=== PATIENT | male | born 1985 | race Caucasian/White ===

== ENCOUNTER 2017-03-01 21:28 | Emergency (ER) | payer SELFPAY ==
[2017-03-01 21:53] VITALS: BP 143/85
[2017-03-01] MEDS ORDERED: Ketorolac 60 MG/2 ML SDV IM ONE ×2 (22:01→22:02)
--- NOTE | 2017-03-01 22:09 | EDM.PDOC ---
ED HPI GENERAL MEDICAL PROBLEM - General Chief Complaint: Back Pain or Injury Stated Complaint: BACK PAIN Time Seen by Provider: 03/01/17 21:55 Source of Information: Reports: Patient History Limitations: Reports: No Limitations - History of Present Illness INITIAL COMMENTS - FREE TEXT/NARRATIVE: Patient is a 32 year old man who has had chronic low back pain for the last 5 years. 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 The lifting has flared his back pain with radiation down both legs. No fever or chills, no trauma and no loss of bowel or bladder control. He does have occassional numbness when walking in the lateral three toes. No other neurological problems. Dr. Bray is his doctor and he manages his depression. He has had Flexeril from one of the clinic doctors in [place] for over one year and it is helping some but he would like additional pain relief. His girlfriend is a instructor physical and she has helped him some with stretches. He would have gone to the clinic today but he could not get off of work to get there since he is new at his job. Onset: Other (10 days ago flare but has been there for 5 years.) Onset Date: 02/19/17 Onset Time: 18:00 Duration: Day(s): (10) Location: Reports: Back Quality: Reports: Ache, Throbbing (in back radiating to testicles for the past 2 days that comes and goes.), Other (Pain radiates into the testicles.) Severity: Moderate (6.5) Improves with: Reports: Immobilization (One back) Worsens with: Reports: Other (Bending), Movement Context: Reports: Activity, Lifting Associated Symptoms: Reports: Other (Numbness in left lateral 3 toes on and off in the last 10 days.) Treatments TUBERCULOSIS SPECIALIST: Reports: NSAIDS, Other (see below) (Cyclobenzaprine.) - Related Data Allergies Allergy/AdvReac Type Severity Reaction Status Date / Time No Known Allergies Allergy Verified 02/22/16 23:45 Home Meds: Home Meds PARoxetine [Paxil] 40 mg PO DAILY #0 tablet 02/25/16 [Rx] Cyclobenzaprine [Flexeril] 1 tab PO TID PRN 03/01/17 [History] Past Medical History Cardiovascular History: Reports: Hypertension Genitourinary History: Reports: Other (See Below) Other Genitourinary History: urethral stricture Psychiatric History: Reports: Depression Social & Family History - Family History Family Medical History: Noncontributory - Tobacco Use Smoking Status *Q: Never Smoker Second Hand Smoke Exposure: No - Caffeine Use Caffeine Use: Reports: Energy Drinks - Alcohol Use Days Per Week of Alcohol Use: 0 - Recreational Drug Use Recreational Drug Use: No ED ROS GENERAL - Review of Systems Review Of Systems: See Below Constitutional: Reports: No Symptoms HEENT: Reports: No Symptoms Respiratory: Reports: No Symptoms Cardiovascular: Reports: No Symptoms Endocrine: Reports: No Symptoms GI/Abdominal: Reports: No Symptoms : Reports: Other (Testicle pain off and on) Musculoskeletal: Reports: Back Pain Skin: Reports: No Symptoms Neurological: Reports: Numbness (Left lateral 3 toes.) Psychiatric: Reports: No Symptoms Hematologic/Lymphatic: Reports: No Symptoms Immunologic: Reports: No Symptoms ED EXAM,LOWER BACK PAIN/INJURY - Physical Exam Exam: See Below Exam Limited By: No Limitations General Appearance: Alert, WD/WN, No Apparent Distress Eye Exam: Bilateral Eye: EOMI, Normal Fundi, Normal Inspection, PERRL Ears: Normal External Exam, Normal Canal, Hearing Grossly Normal, Normal TMs Nose: Normal Inspection, Normal Mucosa, No Blood Throat/Mouth: Normal Inspection, Normal Lips, Normal Teeth, Normal Gums, Normal Oropharynx, Normal Voice, No Airway Compromise Head: Atraumatic, Normocephalic Neck: Normal Inspection, Supple, Non-Tender, Full Range of Motion Respiratory/Chest: No Respiratory Distress Cardiovascular: Normal Peripheral Pulses, Regular Rate, Rhythm, No Edema, No Gallop, No JVD, No Murmur, No Rub GI/Abdominal: Normal Bowel Sounds, Soft, Non-Tender, No Organomegaly, No Distention, No Abnormal Bruit, No Mass (Male) Exam: No Hernia, Normal Inspection, Circumcised, Testicular Tenderness (L), Testicular Tenderness (R) Back Exam: Decreased Range of Motion, Muscle Spasm Extremities: Normal Inspection, Normal Range of Motion, Non-Tender, No Pedal Edema, Normal Capillary Refill Neurological: Alert, Normal Mood/Affect, Normal Dorsiflexion, CN II-XII Intact, Normal Plantar Flexion, Normal Gait, Normal Reflexes, No Motor/Sensory Deficits , Oriented x 3, Other (Negative straight leg raises.) Psychiatric: Normal Affect Skin Exam: Warm, Dry, Intact, Normal Color, No Rash Lymphatic: No Adenopathy Course - Vital Signs Text/Narrative:: Patient was given a shot of Toradol 60 mg IM and that and laying down his pain went down to a 2/10 and the testicular pain nearly went away completely. He will continue Ibuprofen 800 mg orally every 6 hours, tylenol 500 mg orally every 4 hours, Flexeril 10 mg orally every 8 hours as needed. I gave him Prednisone 40 mg orally every day for the next 4 days and follow up with Doctor Katarina in [place] next week. Last Recorded V/S: Last Vital Signs Temp 36.8 C 03/01/17 21:39 Pulse 84 03/01/17 21:39 Resp 18 03/01/17 21:39 BP 143/85 H 03/01/17 21:39 Pulse Ox 96 03/01/17 21:39 - Orders/Labs/Meds Orders: Medication Orders Ketorolac Tromethamine (Toradol) 60 mg IM ONETIME ONE Stop: 03/01/17 22:02 Meds: Medications Generic Name Dose Route Start Last Admin Trade Name Freq PRN Reason Stop Dose Admin Ketorolac Tromethamine 60 mg 03/01/17 22:01 Toradol IM 03/01/17 22:02 ONETIME ONE Departure - Departure Time of Disposition: 22:22 Disposition: Home, Self-Care 01 Condition: Good Clinical Impression: Lumbago - Discharge Information Instructions: Back Pain, Adult, [id number], Chronic Back Pain Forms: ED Department Discharge
[2017-03-01] MEDS ORDERED: predniSONE 20 MG Tab PO ONE (22:10)
== END 2017-03-01 22:30 | disposition home or self-care (01) ==
LOC: FB.ED 21:28
DX: M54.5 Low back pain (principal); I10 Essential (primary) hypertension; F32.9 Major depressive disorder, single episode, unspecified
CPT/HCPCS: 96372; 99283; J1885; A9270-GY

== ENCOUNTER 2017-07-13 01:38 | Emergency (ER) | payer SELFPAY ==
--- NOTE | 2017-07-13 02:05 | EDM.PDOCBH ---
ED HPI GENERAL MEDICAL PROBLEM - General Stated Complaint: TROUBLE BREATHING - Related Data Allergies Allergy/AdvReac Type Severity Reaction Status Date / Time No Known Allergies Allergy Verified 02/22/16 23:45 Home Meds: Home Meds PARoxetine [Paxil] 40 mg PO DAILY #0 tablet 02/25/16 [Rx] Cyclobenzaprine [Flexeril] 1 tab PO TID PRN 03/01/17 [History] Past Medical History Cardiovascular History: Reports: Hypertension Genitourinary History: Reports: Other (See Below) Other Genitourinary History: urethral stricture Psychiatric History: Reports: Depression Social & Family History - Family History Family Medical History: Noncontributory - Tobacco Use Smoking Status *Q: Never Smoker Second Hand Smoke Exposure: Yes - Caffeine Use Caffeine Use: Reports: Energy Drinks - Alcohol Use Days Per Week of Alcohol Use: 0 - Recreational Drug Use Recreational Drug Use: No Departure - Discharge Information Referrals: Kyle Nye MD [Primary Care Provider] -
== END 2017-07-13 01:45 | disposition left against medical advice (07) ==
LOC: FB.ED 01:38
DX: Z53.21 Procedure and treatment not carried out due to patient leaving prior to being seen by health care provider (principal)
CPT/HCPCS: 99284

== ENCOUNTER 2019-02-11 17:22 | Emergency (ER) | payer BC ==
[2019-02-11] MEDS ORDERED: Aspirin 81 MG Tab.Chew PO ONE (17:55)
--- NOTE | 2019-02-11 17:56 | EDM.PDOC ---
ED HPI GENERAL MEDICAL PROBLEM - General Stated Complaint: TIGHTNESS IN THROAT Time Seen by Provider: 02/11/19 17:22 Source of Information: Reports: Patient History Limitations: Reports: No Limitations - History of Present Illness INITIAL COMMENTS - FREE TEXT/NARRATIVE: 34 y.o.w.m came from work due tightness of his chest for 2 weeks and tightness of his throat for 1 week. Coworkers told him it is anxiety. Pt hopson not smoke, drink, no drug use. No energizer use. No palpitations. No SOB no dizziness no diaphoresis or any other acute med issues. BP 133/85 RR 18 Pulse ox 97 Pulse 94 Temp 36.8 Onset Date: 02/09/19 Onset Time: 09:00 Duration: Day(s):, Intermittent Location: Reports: Chest, Upper Extremity, Left Quality: Reports: Dull, Pressure Severity: Mild Improves with: Reports: None Worsens with: Reports: None Context: Reports: Other Associated Symptoms: Reports: No Other Symptoms, Shortness of Breath - Related Data Allergies Allergy/AdvReac Type Severity Reaction Status Date / Time No Known Allergies Allergy Verified 02/11/19 18:07 Home Meds: Home Meds Diclofenac Sodium [Voltaren] 75 mg PO DAILY 02/11/19 [History] Levothyroxine [Synthroid] 500 mcg PO ACBREAKFAST 02/11/19 [History] Lisinopril 40 mg PO DAILY 02/11/19 [History] Venlafaxine [Effexor] 75 mg PO DAILY 02/11/19 [History] buPROPion [Wellbutrin SR] 300 mg PO DAILY 02/11/19 [History] Past Medical History Cardiovascular History: Reports: Hypertension Genitourinary History: Reports: Other (See Below) Other Genitourinary History: urethral stricture Psychiatric History: Reports: Depression Social & Family History - Family History Family Medical History: Noncontributory - Caffeine Use Caffeine Use: Reports: Energy Drinks ED ROS GENERAL - Review of Systems Review Of Systems: See Below Constitutional: Reports: No Symptoms HEENT: Reports: No Symptoms Respiratory: Reports: No Symptoms Cardiovascular: Reports: No Symptoms Endocrine: Reports: No Symptoms GI/Abdominal: Reports: No Symptoms : Reports: No Symptoms Musculoskeletal: Reports: No Symptoms Skin: Reports: No Symptoms Neurological: Reports: No Symptoms Psychiatric: Reports: Anxiety Hematologic/Lymphatic: Reports: No Symptoms Immunologic: Reports: No Symptoms ED EXAM, GENERAL - Physical Exam Exam: See Below Exam Limited By: No Limitations General Appearance: Alert, WD/WN, Mild Distress Eye Exam: Bilateral Eye: Normal Inspection Ears: Normal External Exam, Normal Canal Ear Exam: Bilateral Ear: Auricle Normal Nose: Normal Inspection Throat/Mouth: Normal Inspection Head: Atraumatic, Normocephalic Neck: Normal Inspection, Supple, Non-Tender Respiratory/Chest: No Respiratory Distress Cardiovascular: Normal Peripheral Pulses Peripheral Pulses: 2+: Brachial (R) GI/Abdominal: Normal Bowel Sounds, Soft, Non-Tender, No Organomegaly (Male) Exam: Deferred Rectal (Males) Exam: Deferred Back Exam: Normal Inspection, Full Range of Motion Extremities: Normal Inspection Neurological: Alert, Oriented, CN II-XII Intact, Normal Cognition, Normal Gait Psychiatric: Normal Affect, Normal Mood Skin Exam: Warm, Dry, Intact, Normal Color, No Rash Lymphatic: No Adenopathy EKG INTERPRETATION EKG Date: 02/11/19 Time: 17:55 Rhythm: NSR Rate (Beats/Min): 85 [place]: Normal P-Wave: Present QRS: Normal ST-T: Normal QT: Normal Comparison: NA - No Prior EKG Course - Vital Signs Text/Narrative:: 34 y.o.w.m came from work due tightness of his chest for 2 weeks and tightness of his throat for 1 week. Coworkers told him it is anxiety. Pt hopson not smoke, drink, no drug use. No energizer use. No palpitations. No SOB no dizziness no diaphoresis or any other acute med issues. BP 133/85 RR 18 Pulse ox 97 Pulse 94 Temp 36.8 PE: Morbid obese 34 y.o.w.m in NAD Imaging: CXR: NAD Labs: D-Dimer , 19, CBC nl BMP nl except Ca was 8.4 ETOH 0.03 UDS: pending Impression: Morbid obesity. Hypocalcemia, atypical chest pain, Low HDL TX: ASA Pt was signed out to Dr. Nye at 7 pm. pending Drug screen results. Last Recorded V/S: Last Vital Signs Temp 36.4 C 02/11/19 19:25 Pulse 88 02/11/19 19:25 Resp 17 02/11/19 19:25 BP 117/79 02/11/19 19:25 Pulse Ox 98 02/11/19 19:25 - Orders/Labs/Meds Labs: Laboratory Tests 02/11/19 02/11/19 02/11/19 Range/Units 17:50 17:50 17:50 WBC 8.2 (4.5-12.0) X10-3/uL RBC 4.98 (4.30-5.75) x10(6)uL Hgb 14.8 (13.5-17.8) g/dL Hct 42.6 (30.0-51.3) % MCV 85.6 (80-96) fL MCH 29.8 (27.7-33.6) pg MCHC 34.8 (32.2-35.4) g/dL RDW 11.9 (11.5-15.5) % Plt Count 299 (125-369) X10(3)uL MPV 6.8 L (7.4-10.4) fL Neut % (Auto) 71.5 (46-82) % Lymph % (Auto) 18.8 (13-37) % [place] % (Auto) 8.2 (4-12) % Eos % (Auto) 1 (1.0-5.0) % Baso % (Auto) 0 (0-2) % Neut # (Auto) 5.9 (1.6-8.3) # Lymph # (Auto) 1.5 (0.6-5.0) # [place] # (Auto) 0.7 (0.0-1.3) # Eos # (Auto) 0.1 (0.0-0.8) # Baso # (Auto) 0.0 (0.0-0.2) # D-Dimer, Quantitative (0.0-0.59) mg/LFEU Sodium 140 (135-145) mmol/L Potassium 4.1 (3.5-5.3) mmol/L Chloride 103 (100-110) mmol/L Carbon Dioxide 29 (21-32) mmol/L BUN 15 (7-18) mg/dL Creatinine 1.1 (0.70-1.30) mg/dL Est Cr Clr Drug Dosing TNP Estimated GFR (MDRD) > 60 (>60) BUN/Creatinine Ratio 13.6 (9-20) Glucose 107 (80-116) mg/dL Calcium 8.4 L (8.6-10.2) mg/dL Creatine Kinase 340 H* (60-160) IU/L Troponin I (<0.017-0.056) ng/mL Triglycerides (15-150) mg/dL Cholesterol (50-200) mg/dL LDL Cholesterol Direct (60-130) mg/dL HDL Cholesterol (40-75) mg/dL Cholesterol/HDL Ratio (0-5) Urine Opiates Screen (NEGATIVE) Ur Oxycodone Screen (NEGATIVE) Ur Propoxyphene Screen (NEGATIVE) Ur Barbituates Screen (NEGATIVE) Ur Tricyclics Screen (NEGATIVE) Ur Phencyclidine Scrn (NEGATIVE) Ur Amphetamine Screen (NEGATIVE) Urine MDMA Screen (NEGATIVE) U Benzodiazepines Scrn (NEGATIVE) U Cocaine Metab Screen (NEGATIVE) U Marijuana (THC) Screen (NEGATIVE) Ethyl Alcohol (<0.03) % 02/11/19 02/11/19 02/11/19 Range/Units 17:50 17:50 17:50 WBC (4.5-12.0) X10-3/uL RBC (4.30-5.75) x10(6)uL Hgb (13.5-17.8) g/dL Hct (30.0-51.3) % MCV (80-96) fL MCH (27.7-33.6) pg MCHC (32.2-35.4) g/dL RDW (11.5-15.5) % Plt Count (125-369) X10(3)uL MPV (7.4-10.4) fL Neut % (Auto) (46-82) % Lymph % (Auto) (13-37) % [place] % (Auto) (4-12) % Eos % (Auto) (1.0-5.0) % Baso % (Auto) (0-2) % Neut # (Auto) (1.6-8.3) # Lymph # (Auto) (0.6-5.0) # [place] # (Auto) (0.0-1.3) # Eos # (Auto) (0.0-0.8) # Baso # (Auto) (0.0-0.2) # D-Dimer, Quantitative < 0.19 (0.0-0.59) mg/LFEU Sodium (135-145) mmol/L Potassium (3.5-5.3) mmol/L Chloride (100-110) mmol/L Carbon Dioxide (21-32) mmol/L BUN (7-18) mg/dL Creatinine (0.70-1.30) mg/dL Est Cr Clr Drug Dosing Estimated GFR (MDRD) (>60) BUN/Creatinine Ratio (9-20) Glucose (80-116) mg/dL Calcium (8.6-10.2) mg/dL Creatine Kinase (60-160) IU/L Troponin I < 0.017 L (<0.017-0.056) ng/mL Triglycerides (15-150) mg/dL Cholesterol (50-200) mg/dL LDL Cholesterol Direct (60-130) mg/dL HDL Cholesterol (40-75) mg/dL Cholesterol/HDL Ratio (0-5) Urine Opiates Screen (NEGATIVE) Ur Oxycodone Screen (NEGATIVE) Ur Propoxyphene Screen (NEGATIVE) Ur Barbituates Screen (NEGATIVE) Ur Tricyclics Screen (NEGATIVE) Ur Phencyclidine Scrn (NEGATIVE) Ur Amphetamine Screen (NEGATIVE) Urine MDMA Screen (NEGATIVE) U Benzodiazepines Scrn (NEGATIVE) U Cocaine Metab Screen (NEGATIVE) U Marijuana (THC) Screen (NEGATIVE) Ethyl Alcohol < 0.03 (<0.03) % 02/11/19 02/11/19 Range/Units 17:50 19:00 WBC (4.5-12.0) X10-3/uL RBC (4.30-5.75) x10(6)uL Hgb (13.5-17.8) g/dL Hct (30.0-51.3) % MCV (80-96) fL MCH (27.7-33.6) pg MCHC (32.2-35.4) g/dL RDW (11.5-15.5) % Plt Count (125-369) X10(3)uL MPV (7.4-10.4) fL Neut % (Auto) (46-82) % Lymph % (Auto) (13-37) % [place] % (Auto) (4-12) % Eos % (Auto) (1.0-5.0) % Baso % (Auto) (0-2) % Neut # (Auto) (1.6-8.3) # Lymph # (Auto) (0.6-5.0) # [place] # (Auto) (0.0-1.3) # Eos # (Auto) (0.0-0.8) # Baso # (Auto) (0.0-0.2) # D-Dimer, Quantitative (0.0-0.59) mg/LFEU Sodium (135-145) mmol/L Potassium (3.5-5.3) mmol/L Chloride (100-110) mmol/L Carbon Dioxide (21-32) mmol/L BUN (7-18) mg/dL Creatinine (0.70-1.30) mg/dL Est Cr Clr Drug Dosing Estimated GFR (MDRD) (>60) BUN/Creatinine Ratio (9-20) Glucose (80-116) mg/dL Calcium (8.6-10.2) mg/dL Creatine Kinase (60-160) IU/L Troponin I (<0.017-0.056) ng/mL Triglycerides 99 (15-150) mg/dL Cholesterol 146 (50-200) mg/dL LDL Cholesterol Direct 102 (60-130) mg/dL HDL Cholesterol 29 L (40-75) mg/dL Cholesterol/HDL Ratio 5.0 (0-5) Urine Opiates Screen Negative (NEGATIVE) Ur Oxycodone Screen Negative (NEGATIVE) Ur Propoxyphene Screen Negative (NEGATIVE) Ur Barbituates Screen Negative (NEGATIVE) Ur Tricyclics Screen Negative (NEGATIVE) Ur Phencyclidine Scrn Negative (NEGATIVE) Ur Amphetamine Screen Negative (NEGATIVE) Urine MDMA Screen Negative (NEGATIVE) U Benzodiazepines Scrn Negative (NEGATIVE) U Cocaine Metab Screen Negative (NEGATIVE) U Marijuana (THC) Screen Negative (NEGATIVE) Ethyl Alcohol (<0.03) % Meds: Medications Discontinued Medications Generic Name Dose Route Start Last Admin Trade Name Freq PRN Reason Stop Dose Admin Aspirin 324 mg 02/11/19 17:55 02/11/19 18:05 Aspirin PO 02/11/19 17:56 324 mg ONETIME ONE Administration Departure - Departure Time of Disposition: 07:00 Disposition: Still A Patient 30 Condition: Good Clinical Impression: Atypical chest pain Instructions: Nonspecific Chest Pain, [id number] Referrals: Andreina Severino PA-C [Primary Care Provider] - Forms: ED Department Discharge Additional Instructions: CALL [facility] TO SET AN APPOINTMENT FOR STRESS TEST.
[2019-02-11 19:45] VITALS: BP 117/79; PULSE 88
--- NOTE | 2019-02-12 08:13 | ER ---
DATE SEEN: 02/11/2019 ADDENDUM: I saw this patient for few minutes before he was discharged. Urine drug screen was being waited for and that was negative. He had come in with chest pain and tightness for several weeks and the initial tests are negative for acute coronary syndrome or PE. He does have a history of anxiety, depression, and hypertension. PHYSICAL EXAMINATION: VITAL SIGNS: His blood pressure is 133/85, pulse is 94, and oxygenation 97% on room air. ENT: Normal. MENTAL STATUS: Normal affect. CHEST: Clear. NEUROLOGIC: Normal. LABORATORY DATA: Labs reviewed. As mentioned above, D-dimer was negative. Troponin less than 0.017. IMAGING STUDIES: Chest x-ray was unremarkable. EKG, no ST changes. FINAL IMPRESSION: Atypical chest pain. PLAN: I advised him to have a stress test in the next 72 hours and order was made at the [facility] for him to call tomorrow and make an appointment for the stress test. Return to the ED today with any worsening symptoms. /[id number] NIK/VASHTI
== END 2019-02-11 19:25 | disposition still patient (30) ==
LOC: FB.ED 17:22
DX: R07.89 Other chest pain (principal); I10 Essential (primary) hypertension; F32.9 Major depressive disorder, single episode, unspecified; Z79.899 Other long term (current) drug therapy
CPT/HCPCS: 36415; 71045; 80048; 80061; 80305; 82550; 84484; 85025; 85379; 93005; 99285; A9270; G0480

== ENCOUNTER 2019-08-05 18:03 | Emergency (ER) | payer OTHER, BC ==
[2019-08-05 18:34] VITALS: PULSE 91
[2019-08-05 19:58] VITALS: BP 141/79
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
== END 2019-08-05 19:58 | disposition home or self-care (01) ==
LOC: FB.ED 18:03
DX: S09.90XA Unspecified injury of head, initial encounter (principal); S16.1XXA Strain of muscle, fascia and tendon at neck level, initial encounter; I10 Essential (primary) hypertension; F32.9 Major depressive disorder, single episode, unspecified; Z79.899 Other long term (current) drug therapy; V83.0XXA Driver of special industrial vehicle injured in traffic accident, initial encounter
CPT/HCPCS: 70450; 72125; 99000; 99283-25

== ENCOUNTER 2020-10-10 21:47 | Emergency (ER) | payer BC, OTHER ==
[2020-10-10 22:17] VITALS: PULSE 95
[2020-10-10] MEDS ORDERED: amLODIPine 10 MG Tab PO STA (22:29)
[2020-10-10 22:38] VITALS: BP 151/95
--- NOTE | 2020-10-10 23:03 | EDM.PDOC ---
ED HPI GENERAL MEDICAL PROBLEM - General Chief Complaint: Chest Pain Stated Complaint: chest pains Time Seen by Provider: 10/10/20 21:55 Source of Information: Reports: Patient History Limitations: Reports: No Limitations - History of Present Illness INITIAL COMMENTS - FREE TEXT/NARRATIVE: Patient presented to the ED because of chest pain over the sternal area x 2 days. The pain is an santi,3/10, without sherry associated nausea/vomiting, diaphoresis, and dyspnea. There is no fever,chills, cough /cold symptoms. He has a history of HTN and is taking lisinopril 40 mg daily. - Related Data Allergies Allergy/AdvReac Type Severity Reaction Status Date / Time No Known Allergies Allergy Verified 10/10/20 21:56 Home Meds: Home Meds Lisinopril 40 mg PO DAILY 02/11/19 [History] buPROPion [Wellbutrin SR] 300 mg PO DAILY 02/11/19 [History] Amitriptyline [Elavil] 25 mg PO BEDTIME 10/10/20 [History] Cyclobenzaprine [Flexeril] 10 mg PO TID PRN 10/10/20 [History] PARoxetine [Paxil] 20 mg PO DAILY 10/10/20 [History] atorvaSTATin [Lipitor] 40 mg PO DAILY 10/10/20 [History] Past Medical History Cardiovascular History: Reports: Hypertension Genitourinary History: Reports: Other (See Below) Other Genitourinary History: urethral stricture repair Psychiatric History: Reports: Depression Social & Family History - Family History Family Medical History: No Pertinent Family History - Tobacco Use Tobacco Use Status *Q: Never Tobacco User - Caffeine Use Caffeine Use: Reports: None - Recreational Drug Use Recreational Drug Use: No ED ROS GENERAL - Review of Systems Review Of Systems: See Below Constitutional: Reports: No Symptoms HEENT: Reports: No Symptoms Respiratory: Reports: No Symptoms Cardiovascular: Reports: Chest Pain Endocrine: Reports: No Symptoms GI/Abdominal: Reports: No Symptoms : Reports: No Symptoms Musculoskeletal: Reports: No Symptoms Skin: Reports: No Symptoms Neurological: Reports: No Symptoms ED EXAM, GENERAL - Physical Exam Exam: See Below Exam Limited By: No Limitations General Appearance: Alert, No Apparent Distress Ears: Normal External Exam, Normal Canal Nose: Normal Inspection, Normal Mucosa, No Blood Throat/Mouth: Normal Inspection, Normal Lips, Normal Teeth Head: Atraumatic, Normocephalic Neck: Normal Inspection, Supple, Non-Tender, Full Range of Motion Respiratory/Chest: No Respiratory Distress, Lungs Clear, Normal Breath Sounds Cardiovascular: Normal Peripheral Pulses, Regular Rate, Rhythm, No Edema, No Gallop GI/Abdominal: Normal Bowel Sounds, Soft, Non-Tender, No Organomegaly Back Exam: Normal Inspection, Full Range of Motion #1 Interpretation EKG Date: 10/10/20 Time: 21:59 Rhythm: NSR Rate (Beats/Min): 89 [place]: Normal P-Wave: Present QRS: Normal ST-T: Normal QT: Normal Comparison: No Change (NSR without acute changes) Course - Vital Signs Text/Narrative:: Labs/EKG result was discussed and reviewed with patient Norvasc 10 mg PO x1 Last Recorded V/S: Last Vital Signs Temp Pulse 95 10/10/20 21:50 Resp 24 H 10/10/20 21:50 BP 151/95 H 10/10/20 22:37 Pulse Ox 99 10/10/20 21:50 - Orders/Labs/Meds Orders: Active Orders 24 hr Category Date Time Status TROPONIN I [CHEM] Stat Lab 10/10/20 22:20 Received Labs: Laboratory Tests 10/10/20 10/10/20 Range/Units 22:20 22:20 WBC 10.4 H (3.2-10.1) x10-3/uL RBC 5.03 (3.90-5.90) x10(6)uL Hgb 14.9 (12.9-17.7) g/dL Hct 44.1 (38.3-50.1) % MCV 87.7 (80.8-98.7) fL MCH 29.6 (27.0-33.3) pg MCHC 33.7 (28.7-35.3) g/dL RDW 13.3 (12.4-15.0) % Plt Count 328 (117-477) x10(3)uL MPV 7.1 (6.7-11.0) fL Neut % (Auto) 60.8 (40.3-71.8) % Lymph % (Auto) 29.1 (15.8-45.3) % [place] % (Auto) 7.5 (5.5-15.2) % Eos % (Auto) 1.6 (0.1-6.8) % Baso % (Auto) 1.0 (0.3-3.8) % Neut # (Auto) 6.3 (1.7-6.9) x10-3/uL Lymph # (Auto) 3.0 (0.5-4.5) x10-3/uL [place] # (Auto) 0.8 (0.0-1.2) x10-3/uL Eos # (Auto) 0.2 (0.0-0.6) x10-3/uL Baso # (Auto) 0.1 (0.0-0.3) x10-3/uL Sodium 140 (135-145) mmol/L Potassium 3.6 (3.5-5.3) mmol/L Chloride 101 (100-110) mmol/L Carbon Dioxide 25 (21-32) mmol/L BUN 17 (7-18) mg/dL Creatinine 1.1 (0.70-1.30) mg/dL Est Cr Clr Drug Dosing 112.88 mL/min Estimated GFR (MDRD) > 60 (>60) BUN/Creatinine Ratio 15.5 (9-20) Glucose 147 H (80-116) mg/dL Calcium 8.8 (8.6-10.2) mg/dL Total Bilirubin 0.4 (0.1-1.3) mg/dL AST 20 (5-25) IU/L ALT 38 H (12-36) U/L Alkaline Phosphatase 84 (56-112) IU/L Total Protein 7.3 (6.0-8.0) g/dL Albumin 3.6 (3.5-5.2) g/dL Globulin 3.7 g/dL Albumin/Globulin Ratio 1.0 Meds: Medications Discontinued Medications Generic Name Dose Route Start Last Admin Trade Name Freq PRN Reason Stop Dose Admin Amlodipine Besylate 10 mg 10/10/20 22:29 10/10/20 22:37 Amlodipine 10 Mg Tab PO 10/10/20 22:30 10 mg NOW STA Administration Departure - Departure Time of Disposition: 23:10 Disposition: Home, Self-Care 01 Condition: Good Clinical Impression: Hypertension, Chest pain Instructions: Hypertension, Adult, [id number], Nonspecific Chest Pain, Adult, [id number] Referrals: PCP,None [Primary Care Provider] - Additional Instructions: Please read discharge instructions on hypertension and non-specific chest pain Low salt fat diet Exercise Call your doctor tomorrow for a follow up. You need another BP med plus you lisinopril We gave you amlodipine 10 mg while in the ED Sepsis Event Note (ED) - Evaluation Sepsis Screening Result: No Definite Risk - Focused Exam Vital Signs: Vital Signs Pulse Resp BP BP Pulse Ox 10/10/20 22:37 151/95 H 10/10/20 21:50 95 24 H 170/95 H 99 - My Orders Last 24 Hours: My Active Orders 10/10/20 22:20 TROPONIN I [CHEM] Stat - Assessment/Plan Last 24 Hours: My Active Orders 10/10/20 22:20 TROPONIN I [CHEM] Stat
== END 2020-10-10 23:15 | disposition home or self-care (01) ==
LOC: FB.ED 21:47
DX: R07.9 Chest pain, unspecified (principal); I10 Essential (primary) hypertension; Z79.899 Other long term (current) drug therapy
CPT/HCPCS: 36415; 80053; 84484; 85025; 93005; 99285-25; A9270-GY